=== PATIENT | female | born 2000 | race Caucasian/White ===

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

== ENCOUNTER 2020-02-26 23:28 | Emergency (ER) | payer MEDICAID ==
[~2020-02-26] VITALS: Ht 152.4 cm; Wt 61.4 kg
[2020-02-26 23:35] VITALS: Ht 152.4 cm; Wt 61.4 kg
[2020-02-27 01:55] VITALS: BP 134/77
== END 2020-02-27 01:55 | disposition home or self-care (01) ==
LOC: ED 23:28
DX: S06.0X0A Concussion without loss of consciousness, initial encounter (principal); J45.909 Unspecified asthma, uncomplicated; W22.8XXA Striking against or struck by other objects, initial encounter; Y93.89 Activity, other specified; Y92.89 Other specified places as the place of occurrence of the external cause; Y99.8 Other external cause status

== ENCOUNTER 2020-03-14 17:44 | Emergency (ER) | payer OTHER, MEDICAID ==
[~2020-03-14] VITALS: Ht 152.4 cm; Wt 60.4 kg
[2020-03-14 17:45] VITALS: BP 141/79; Ht 152.4 cm; Wt 60.4 kg
== END 2020-03-14 20:07 | disposition home or self-care (01) ==
LOC: ED 17:44
DX: O9A.211 Injury, poisoning and certain other consequences of external causes complicating pregnancy, first trimester (principal); O99.519 Diseases of the respiratory system complicating pregnancy, unspecified trimester; S05.12XA Contusion of eyeball and orbital tissues, left eye, initial encounter; S70.01XA Contusion of right hip, initial encounter; S60.512A Abrasion of left hand, initial encounter; M54.5 Low back pain; Z3A.00 Weeks of gestation of pregnancy not specified; V49.59XA Passenger injured in collision with other motor vehicles in traffic accident, initial encounter; Y93.89 Activity, other specified; Y92.488 Other paved roadways as the place of occurrence of the external cause; Y99.8 Other external cause status

== ENCOUNTER 2020-05-07 16:31 | Emergency (ER) | payer MEDICAID ==
[~2020-05-07] VITALS: Ht 152.4 cm; Wt 60.8 kg
[2020-05-07 16:39] VITALS: Ht 152.4 cm; Wt 60.8 kg
[2020-05-07 17:54] LABS: BASOPHIL % 0.5 % (0.2-1.3); PLATELET COUNT 236 x10^3mcL (179-408); RED CELL DISTRIBUTION WIDTH 12.7 % (12.3-17.7)
[2020-05-07 18:03] LABS: microscopic required? YES; urine erythrocyte TRACE (NEGATIVE)
[2020-05-07 19:30] VITALS: BP 101/78
== END 2020-05-07 19:30 | disposition home or self-care (01) ==
LOC: ED 16:31
PROVIDERS: Emergency Medicine
DX: O20.0 Threatened abortion (principal); J45.909 Unspecified asthma, uncomplicated